=== PATIENT | female | born 1960 | race Caucasian/White ===

== ENCOUNTER 2019-02-02 14:16 | Day surgery (SDC) | payer OTHER ==
[~2019-02-02] VITALS: Ht 162.6 cm; Wt 111.1 kg
[~2019-02-02 14:16] MED LIST: ALBU90OI61 INH; ATEN50 PO; BACL10 PO; BUDE6HFA INH; BUSP5 PO; CALCA500CH PO; CRUTCH3 USE; DICLOFONO2.5 GM TOP; DULO60 PO; ERGO50000 PO; FERR325 PO; FERROUS SULFATE PO; FLUT220OIA IH; FLUTICASONE; Ferrous Sulfat325 M2 PO; Flonase 0.05% N16 GM; GABA300 PO; GLIM2 PO; HYDHCL25 PO; IRON50 PO; LISI5 PO; LORA10ER PO; MELO7.5 PO; METF500C PO; MIRALAX17 GM PO; Metformin HCl1000 MG PO; Norco 10-325 T1 EACH PO; OMEPRAZOLE MAGN20 MG PO; OXYACE5T PO; RANI150 PO; SERT50 PO; Singulair10 MG PO; TIOT18 IH; TRAZ100 PO; VENL75ER PO; Ventolin5 MG/1 ML INH
== END 2019-02-02 16:40 | disposition home or self-care (01) ==
LOC: ORSCSDS 14:16
PROVIDERS: Student in an Organized Health Care Education/Training Program
PROC: 0DB48ZX Excision of Esophagogastric Junction, Via Natural or Artificial Opening Endoscopic, Diagnostic (ICD-10-PCS; principal; 2019-02-02 15:30)
PROC: 0DB68ZX Excision of Stomach, Via Natural or Artificial Opening Endoscopic, Diagnostic (ICD-10-PCS; principal; 2019-02-02 15:30)
DX: K22.70 Barrett's esophagus without dysplasia (principal); K29.70 Gastritis, unspecified, without bleeding; G47.33 Obstructive sleep apnea (adult) (pediatric); E11.9 Type 2 diabetes mellitus without complications; F41.8 Other specified anxiety disorders; D64.9 Anemia, unspecified; I10 Essential (primary) hypertension; E78.00 Pure hypercholesterolemia, unspecified; E66.01 Morbid (severe) obesity due to excess calories; Z68.41 Body mass index [BMI] 40.0-44.9, adult; F17.210 Nicotine dependence, cigarettes, uncomplicated; Z79.84 Long term (current) use of oral hypoglycemic drugs; Z79.899 Other long term (current) drug therapy
CPT/HCPCS: 82947; 88305; 88341; 88342; J2704; J7120